=== PATIENT | female | born 1975 | race African-American/Black ===

== ENCOUNTER 2022-03-29 04:21 | Emergency (ER) | payer MEDICAID ==
[~2022-03-29] VITALS: Ht 165.1 cm; Wt 52.0 kg
[2022-03-29 04:26] VITALS: BP 155/99
[2022-03-29] MEDS ORDERED: LIDOCAINE HCL/PF 1% 10 MG/ML 5ML VIAL INFIL ONE (05:45)
[2022-03-29] MEDS ORDERED: ACETAMINOPHEN 325MG TABLET PO ONE (05:45)
[2022-03-29] MEDS ORDERED: TOPUD PO (05:57)
== END 2022-03-29 06:25 | disposition home or self-care (01) ==
LOC: ER 04:21
DX: S63.257A Unspecified dislocation of left little finger, initial encounter (principal); W23.1XXA Caught, crushed, jammed, or pinched between stationary objects, initial encounter; Y93.89 Activity, other specified; Y92.810 Car as the place of occurrence of the external cause
CPT/HCPCS: 73120; 99152; 99285; J3490; Z7610